=== PATIENT | male | born 1985 | race Two or more races ===

== ENCOUNTER 2019-01-05 07:32 | Emergency (ER) | payer OTHER ==
[~2019-01-05] VITALS: Ht 175.3 cm; Wt 68.0 kg
[2019-01-05 08:05] VITALS: BP 126/88
[2019-01-05] MEDS ORDERED: LIDOCAINE HCL (LOCAL ANESTH.) 0.5 % 50ML MDV IJ ONE (08:15)
[2019-01-05] MEDS ORDERED: BACITRACIN TOP OINT 1 UD PKG TOP ONE ×2 (08:17→08:30)
[2019-01-05] MEDS ORDERED: LIDOCAINE 1% (LOCAL ANESTH.) PF 5ml SDV ID ONE (08:30)
[2019-01-05] MEDS ORDERED: TETANUS-DIPTH-ACEL PERTUSSIS 0.5ML SYRG IM ONE (08:30)
== END 2019-01-05 08:55 | disposition home or self-care (01) ==
LOC: ER 07:40
DX: S41.111A Laceration without foreign body of right upper arm, initial encounter (principal); W26.0XXA Contact with knife, initial encounter; Y93.89 Activity, other specified; Y99.0 Civilian activity done for income or pay; Y92.69 Other specified industrial and construction area as the place of occurrence of the external cause
CPT/HCPCS: 12002; 90471; 90715